=== PATIENT | female | born 1965 | race Caucasian/White ===

== ENCOUNTER 2019-02-13 05:46 | Day surgery (SDC) | payer MEDICAID, OTHER ==
[2019-02-13] MEDS ORDERED: LIDOCAINE 2% (SDV) 5 ML INJ (07:38)
[2019-02-13] MEDS ORDERED: PROPOFOL 60 ML (07:38)
== END 2019-02-13 10:57 | disposition home or self-care (01) ==
LOC: GIL 05:46
DX: Z12.11 Encounter for screening for malignant neoplasm of colon (principal); K64.8 Other hemorrhoids; K31.7 Polyp of stomach and duodenum; K20.9 Esophagitis, unspecified
CPT/HCPCS: 43239; 84703; 88305; 88312; 88313